=== PATIENT | male | born 1955 | race Caucasian/White ===

== ENCOUNTER → 2024-12-13 | Day surgery (SDC) | payer OTHER ==
[2024-12-08 14:07] LABS: Absolute Basophils 0.1 K/uL (0-0.5); Absolute Eosinophils 0.2 K/uL (0-0.5); Absolute Lymphocytes (CBC) 2.5 K/uL (0.7-4.9); Absolute Monocytes 0.9 K/uL (0.1-1.3); Absolute Neutrophil 4.3 K/uL (1.8-8.0); Eosinophils % 2.9 % (0-4.4); Hematocrit 48.3 % (39.6-49.0); Hemoglobin 16.8 g/dL (13.6-17.9); Lymphocytes % 30.9 % (15.3-44.8); MCH 31.7 pg (27.0-35.0); MCHC 34.7 g/dL (32.0-36.0); MCV 91.5 fL (80-100); MPV 8.9 fL (7.6-11.3); Monocytes % 11.5 % (3.3-12.3); Neutrophils % 53.7 % (41.7-73.7); Nucleated Red Blood Cells % 0.1 % (0-0); Platelets 137 thou/uL (152-406); RBC Red Blood Cell Count 5.28 M/uL (4.33-5.43); Red Cell Distribution Width 12.6 % (12.1-15.2)
[2024-12-08 14:15] LABS: Anion Gap 9.3 mEq/L (5.0-15.0); Potassium 4.3 mEq/L (3.5-5.1)
--- NOTE | 2024-12-08 14:19 | RAD REPORT ---
EXAM: Chest Pa And Lat (2 Views) HISTORY: 69 years Male pre op COMPARISON: 07/09/2022 FINDINGS: LUNGS/PLEURA: The lungs are clear. No pleural effusions or pneumothorax. No pulmonary edema. CARDIAC/MEDIASTINUM: The cardiac silhouette is within normal limits. UPPER ABDOMEN: No significant abnormality. BONES: No acute abnormality. LINES/TUBES/OTHER: N/A IMPRESSION: No evidence of acute cardiopulmonary disease. No significant change from prior.
--- NOTE | 2024-12-12 11:16 | EKG ---
Test Date: 2024-12-08 Test Time: 14:53:26 [employer] Operator: SOHEILA MEASUREMENT RESULTS: Intervals: Rate: 71 NV: 156 QRSD: 84 QT: 386 QTc: 419 [place]: P: 72 NV: 156 QRS: -29 T: 49 INTERPRETIVE STATEMENTS: Normal sinus rhythm Normal ECG Compared to ECG 07/09/2022 15:13:26 Left ventricular hypertrophy no longer present Electronically Signed On 12-12-24 11:04:14 CDT by Alejo Ramírez
[~2024-12-13] MED LIST: LIDOCAINE 1% MPF 5 ML VIAL ONE; ONDANSETRON 4 MG/2 ML VIAL ONE; propofoL 200 MG/20 ML VIAL IV ONE
[2024-12-13] MEDS: NA CHLORIDE 0.9% 1,000 ML ONE (07:20)
[2024-12-13 07:47] VITALS: O2SAT 100
[2024-12-13 09:54] VITALS: BP 125/75; TEMP 98.6
== END ==
LOC: OR 06:52
PROVIDERS: ATTEND Surgery
PROC: 0DJD8ZZ Inspection of Lower Intestinal Tract, Via Natural or Artificial Opening Endoscopic (ICD-10-PCS; principal; 2024-12-13 08:30)
DX: R19.5 Other fecal abnormalities (principal); K64.8 Other hemorrhoids; K57.30 Diverticulosis of large intestine without perforation or abscess without bleeding; N42.9 Disorder of prostate, unspecified
CPT/HCPCS: 93005; 85025; 80048; 36415; 82947; 71046; 45378; J2704; J2003; J2405; J7030